=== PATIENT | female | born 1995 | race Caucasian/White ===

== ENCOUNTER 2016-07-05 11:26 | Inpatient (IN) | payer OTHER ==
[~2016-07-05] VITALS: Ht 165.1 cm; Wt 53.9 kg
[2016-07-05 12:57] LABS: MEAN CORPUSCULAR HEMOGLOBIN 29.9 pg (27.0-33.0); MEAN CORPUSCULAR HGB CONC 33.4 g/dl (32.0-36.5); MEAN CORPUSCULAR VOLUME 89.4 fl (80.0-96.0); RED CELL DISTRIBUTION WIDTH 11.7 % (11.5-14.5); WHITE BLOOD COUNT 7.6 K/mm3 (4.0-10.0)
[2016-07-05 13:15] LABS: CONTROL LINE HCG INT CTR LINE PRESENT
[2016-07-05 13:23] LABS: METHADONE URINE NEGATIVE (NEGATIVE)
[2016-07-05 13:35] LABS: ALBUMIN 3.5 GM/DL (3.2-5.2); ALBUMIN/GLOBULIN RATIO 1.06 (1.00-1.93); ALKALINE PHOSPHATASE 48 U/L (45-117); ALT/SGPT 30 U/L (12-78); ANION GAP 8 MEQ/L (8-16); AST/SGOT 30 U/L (15-37); BILIRUBIN,DIRECT < 0.1 MG/DL (0.0-0.2); BILIRUBIN,TOTAL 0.2 MG/DL (0.2-1.0); BLOOD UREA NITROGEN 9 MG/DL (7-18); CALCIUM LEVEL 8.8 MG/DL (8.5-10.1); CARBON DIOXIDE LEVEL 30 MEQ/L (21-32); CHLORIDE LEVEL 102 MEQ/L (98-107); CREATININE FOR GFR 0.58 MG/DL (0.55-1.02); GLOMERULAR FILTRATION RATE > 60.0 (>60); GLUCOSE, FASTING 76 MG/DL (70-105); POTASSIUM SERUM 3.8 MEQ/L (3.5-5.1); SODIUM LEVEL 140 MEQ/L (136-145); TOTAL PROTEIN 6.8 GM/DL (6.4-8.2)
[2016-07-05] MEDS ORDERED: LUNE3TAB48 PO (14:51)
[2016-07-05] MEDS ORDERED: LOES1TAB10 PO (14:51)
[2016-07-05 16:23] VITALS: BP 119/69
[2016-07-05] MEDS ORDERED: ACETAMINOPHEN TAB 650MG DOSE (2X325MG) PO PRN (17:30)
[2016-07-05] MEDS ORDERED: MOM 30ML SUSPENSION UDC PO PRN (17:30)
[2016-07-05] MEDS: NICOTINE 21MG/24HR 1 EA TRANSDERMAL TD SCH (17:53)
[2016-07-05] MEDS: zolPIDEM TARTRATE 10MG TAB PO PRN (22:36)
[2016-07-06 06:22] VITALS: BP 111/71
[2016-07-06] MEDS: NICOTINE 21MG/24HR 1 EA TRANSDERMAL TD SCH (08:29)
--- NOTE | 2016-07-06 10:52 | HPEPDOC ---
Medical History and Physical Date of Admission Jul 05, 2016 at 13:59 History and Physical PCP: [facility] ATTENDING: Dr. Rogelio Santacruz HPI: 20yoF admitted to [facility] for depression, being medically examined today. No acute medical complaints today. Denies any fevers, chills, weakness, fatigue, BECERRA , CP, SOB, cough, palpitations, abdominal pain, N/V/D or changes in bowel or bladder habits. PMHx: Depression Anxiety Insomnia ADHD Tobacco use PSHX: Denies SOCHX: Resides in: [place], from [place] Marital Status: Kids: None Employment: Active duty Tobacco use: One pack per day ETOH: Denies Illicit Drugs: Denies IV Drug Use: Denies Tattoos done unprofessionally: Denies FAMHX: Mother: Alive, well Father: Alive, CVA Siblings: One sister Alive, well Children: None Unexpected deaths due to medical reasons: None. ROS: As noted in HPI, otherwise 11pt ROS of systems reviewed and remarkable only for LMP 06/07/16 PE: GEN: 20 yo F, appears stated age. Well-nourished, well developed. No acute distress. Alert and oriented x 3. Pleasant, interactive. HEENT: Normocephalic, atraumatic. Pupils are equal, round, and reactive to light. Extraocular movements are intact. No nystagmus appreciated. Sclera are nonicteric. Conjunctiva without injection. Nose midline. Nasal turbinates without bogginess. EACs both patent BL. TMs both visualized and andrade with good cone of light, no bulging or erythema. No facial asymmetry. Moist mucous membranes. Dentition fair. Pharynx pink and moist, no cobblestoning. Neck supple , trachea midline. No lymphadenopathy or thyromegaly appreciated. CHEST: Regular rate and rhythm, +S1, +S2 LUNGS: Clear to auscultation bilaterally. No wheezes, rales, or rhonchi. Breathing appears symmetric and easy. Patient is speaking in full sentences. No accessory muscle use. ABD: Round, soft, non-tender, non-distended. +Bowel sounds throughout. No rebound or guarding. No costovertebral angle tenderness. EXT: Pulses 2+ bilaterally dorsalis pedis and radial. No lower extremity edema appreciated. SKIN: [place], dry, warm. Capillary refill <2sec. No rashes. NEURO: Alert and oriented x 3. Cranial nerves III-XII are intact. No focal deficits appreciated. EKG: pending. A&P: 20yoF admitted to [facility] for depression 1. Psych. Plan per Psychiatry. Obtain baseline EKG to assure the safety of psychiatric medications as they can prolong the QT interval. 2. Nicotine dependence. Patch available. 3. Follow up with PCP on discharge. 4. Continue OCP. 5. Staff member Caty GARCIA present throughout exam. Vital Signs Vital Signs Label Value Date Time Patient Temperature 97.5 degrees F 07/06/16621 Temperature Source Core 07/06/16621 Pulse 84 07/06/16621 Respiratory Rate 16 bpm 07/06/16621 Blood Pressure Assessment 111/71 (84) 07/06/16621 Laboratory Data Labs 24H Laboratory Tests 2 07/05/16 12:37: Acetaminophen Level < 2.0L, Aspartate Amino Transf (AST/SGOT) 30, Alanine Aminotransferase (ALT/SGPT) 30, Alkaline Phosphatase 48, Total Bilirubin 0.2, Direct Bilirubin < 0.1, Albumin 3.5, Albumin/Globulin Ratio 1.06, Anion Gap 8, Calcium Level 8.8, Ethyl Alcohol Level 0.003, Glomerular Filtration Rate > 60.0 , Human Chorionic Gonadotropin, Qual NEGATIVE, Salicylates Level < 1.7L, Thyroid Stimulating Hormone (TSH) 1.250, Total Protein 6.8, Urine Amphetamines Screen NEGATIVE, Urine Benzodiazepines Screen NEGATIVE, Urine Opiates Screen NEGATIVE, Urine Barbiturates Screen NEGATIVE, Urine Cannabinoids Screen NEGATIVE , Urine Cocaine Metabolite Screen NEGATIVE, Urine Methadone Screen NEGATIVE, Urine Phencyclidine Screen NEGATIVE CBC/BMP Laboratory Tests 07/05/16 12:37 Red Blood Count 4.54, Mean Corpuscular Volume 89.4, Mean Corpuscular Hemoglobin 29.9, Mean Corpuscular Hemoglobin Concent 33.4, Red Cell Distribution Width 11.7 Home Medications Scheduled (Loestrin Fe 1.5/30 1.5-30 mg-Mcg) 1 Tab Tab 1 TAB PO DAILY Scheduled PRN (Lunesta) 3 Mg Tab 3 MG PO QHS PRN PRN SLEEP Allergies Coded Allergies: No Known Allergies (Unverified , 07/05/16) Sharifa Mac Jul 06, 2016 10:52
[2016-07-06] MEDS: ESCITALOPRAM OXALATE 10 MG TAB (LEXAPRO) PO SCH (17:54)
[2016-07-06 18:00] VITALS: BP 126/85
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
[2016-07-06] MEDS: PROPRANOLOL 10 MG TAB PO PRN (20:54)
[2016-07-06] MEDS: zolPIDEM TARTRATE 10MG TAB PO PRN (22:12)
[2016-07-07 06:30] VITALS: BP 131/82
[2016-07-07] MEDS: ADDERALL 5 MG TAB PO SCH ×2 (09:20→13:52)
[2016-07-07] MEDS: NICOTINE 21MG/24HR 1 EA TRANSDERMAL TD SCH (09:20)
[2016-07-07] MEDS: ESCITALOPRAM OXALATE 10 MG TAB (LEXAPRO) PO SCH (09:20)
--- NOTE | 2016-07-07 09:48 | ECGEPIP ---
Stationary ECG Study [facility] Test Date: 2016-07-06 Pat Name: MARK MARIN Department: Room: [place] [address] Gender: F [employer] Operator Vertical: : 1995 Requested By: Sharifa Mac Order Number: [id number] Reading MD: Virginia Parisi Measurements Intervals [place] Rate: 96 P: 46 AR: 140 QRS: 56 QRSD: 89 T: 71 QT: 355 QTc: 450 Interpretive Statements SINUS RHYTHM NO PRIOR Electronically Signed On 07-07-2016 9:48:17 EDT by Virginia Parisi
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
[2016-07-07] MEDS ORDERED: traZODone 50 MG TAB PO PRN (16:15)
[2016-07-07 18:00] VITALS: BP 140/88
[2016-07-07 21:52] VITALS: BP 159/97
[2016-07-07] MEDS: PROPRANOLOL 10 MG TAB PO PRN (21:52)
[2016-07-07 22:10] VITALS: BP 138/90
[2016-07-08 06:24] VITALS: BP 101/55
[2016-07-08] MEDS: ESCITALOPRAM OXALATE 10 MG TAB (LEXAPRO) PO SCH (08:28)
[2016-07-08] MEDS: ADDERALL 5 MG TAB PO SCH ×2 (08:28→14:17)
[2016-07-08] MEDS: NICOTINE 21MG/24HR 1 EA TRANSDERMAL TD SCH (08:28)
[2016-07-08] MEDS: LOESTRIN FE PO SCH (09:00)
--- NOTE | 2016-07-08 12:23 | IPN ---
DATE: 07/08/2016 Mrs. Zhong's mood is good today. She has sleep difficulties and sleep walking problems. Trazodone that she requested yesterday made her nauseous and she was not able to sleep on it. We requested that she get her own Lunesta brought in for her as it works for her. The patient is a flight mechanic. She has had severe depression. She is presently on Lexapro 10 mg as ordered by her physician. She denies hallucinations, delusions, obsessions, compulsions, and phobias. She has a full fund of information, is fully oriented. No disturbance of language. Patient takes Adderall for attention and concentration. Recent and remote memory are intact. Judgment and insight are normal. No psychotic thoughts noted. No loose associations. Speech is of normal rate, rhythm, volume and articulation. DIAGNOSIS: Major depressive illness.
[2016-07-08 18:00] VITALS: BP 135/90
[2016-07-09 06:16] VITALS: BP 104/56
[2016-07-09] MEDS: LOESTRIN FE PO SCH (09:00)
[2016-07-09] MEDS: ESCITALOPRAM OXALATE 10 MG TAB (LEXAPRO) PO SCH (09:05)
[2016-07-09] MEDS: NICOTINE 21MG/24HR 1 EA TRANSDERMAL TD SCH (09:06)
[2016-07-09] MEDS: ADDERALL 5 MG TAB PO SCH ×2 (09:06→13:15)
[2016-07-09] MEDS ORDERED: ESCI10TA2 PO (17:55)
[2016-07-09] MEDS ORDERED: PROP10TA56 PO (17:55)
[2016-07-09 18:00] VITALS: BP 141/66
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
[2016-07-10 06:42] VITALS: BP 138/88
[2016-07-10] MEDS: ESCITALOPRAM OXALATE 10 MG TAB (LEXAPRO) PO SCH (08:38)
[2016-07-10] MEDS: LOESTRIN FE PO SCH (08:40)
[2016-07-10] MEDS: ADDERALL 5 MG TAB PO SCH (08:40)
[2016-07-10] MEDS: NICOTINE 21MG/24HR 1 EA TRANSDERMAL TD SCH (08:40)
[2016-07-10] MEDS ORDERED: PROP10TA56 PO (10:00)
[2016-07-10] MEDS ORDERED: LEXA1TAB PO (10:00)
[2016-07-10] MEDS ORDERED: NICO21PAT TD (10:03)
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
== END 2016-07-10 10:40 | disposition home or self-care (01) | DRG 882 ==
LOC: M ED 12:39 → M ED INP 13:59 → M PSY 16:34
PROVIDERS: ADMIT Psychiatry & Neurology Child & Adolescent Psychiatry; ATTEND Psychiatry & Neurology Psychiatry
DX: F43.11 Post-traumatic stress disorder, acute (principal); F50.01 Anorexia nervosa, restricting type; F60.3 Borderline personality disorder; Z79.899 Other long term (current) drug therapy; Z91.410 Personal history of adult physical and sexual abuse; Z62.811 Personal history of psychological abuse in childhood; Z62.812 Personal history of neglect in childhood